=== PATIENT | female | born 1975 | race Caucasian/White ===

== ENCOUNTER 2016-10-01 18:55 | Emergency (ER) | payer BC ==
[2016-10-01] MEDS ORDERED: CEFTRIAXONE 1 GM VIAL ONE (20:58)
[2016-10-01] MEDS ORDERED: LIDOCAINE 1% MDV 20 ML ONE (20:58)
== END 2016-10-01 21:25 | disposition home or self-care (01) ==
LOC: ER 18:55
DX: N30.01 Acute cystitis with hematuria (principal)
CPT/HCPCS: 81001; 81025; 87077; 87088; 87186; 96372